=== PATIENT | male | born 1990 | race Caucasian/White ===

== ENCOUNTER 2024-08-19 10:15 | Emergency (ER) | payer BC ==
[2024-08-19] MEDS ORDERED: Sodium Chloride 0.9% 10 ML Syringe FLUSH PRN (10:49)
[2024-08-19] MEDS: Ondansetron 4 MG/2 ML SDV IVPUSH ONE (10:52)
[2024-08-19] MEDS: HYDROmorphone 1 MG/ML Syringe IVPUSH ONE (10:52)
[2024-08-19] MEDS: Sodium Chloride 0.9% 1,000 ML IV ONE (10:52)
[2024-08-19] MEDS: Etomidate 2 MG/ML 10 ML SDV IVPUSH ONE (11:21)
[2024-08-19] MEDS: Etomidate 2 MG/ML 10 ML SDV ONE (11:21)
== END 2024-08-19 12:05 | disposition home or self-care (01) ==
LOC: KA.ED 10:15
DX: S43.015A Anterior dislocation of left humerus, initial encounter (principal); W10.8XXA Fall (on) (from) other stairs and steps, initial encounter
CPT/HCPCS: 23650; 73020-LT; 73030-LT; 96374; 96375; 99283-25; J1171; J2405; J3490; J7030